=== PATIENT | female | born 1985 | race Caucasian/White ===

== ENCOUNTER 2020-07-18 21:30 | Emergency (ER) | payer OTHER ==
[~2020-07-18] VITALS: Ht 157.5 cm; Wt 62.6 kg
[2020-07-18 23:43] LABS: BASOPHILS % (AUTO) 1 % (0-1); EOSINOPHILS % (AUTO) 1 % (1-7); LYMPHOCYTES % (AUTO) 31 % (22-44); MEAN CORPUSCULAR HEMOGLOBIN 30.5 pg (27.0-34.8); MEAN CORPUSCULAR HGB CONC 34.7 g/dL (32.4-35.8); MEAN PLATELET VOLUME 7.8 fL (7.4-10.4); MONOCYTES % (AUTO) 7 % (2-9); NEUTROPHILS % (AUTO) 60 % (42-75); PLATELET COUNT 315 x10^3/uL (130-400); RED BLOOD COUNT 4.13 x10^6/uL (3.82-5.3); RED CELL DISTRIBUTION WIDTH 13.2 % (9.6-15.2)
[2020-07-18 23:44] LABS: MD NO
[2020-07-18 23:55] LABS: ALBUMIN 3.6 g/dL (3.4-5.0); ANION GAP 5 mmol/L (5-15); CALCIUM 8.5 mg/dL (8.5-10.1); CHLORIDE 108 mmol/L (98-107); CREATININE 0.55 mg/dL (0.55-1.02)
[2020-07-19 01:39] VITALS: BP 118/83
== END 2020-07-19 01:56 | disposition home or self-care (01) ==
LOC: ED 21:31
DX: N93.8 Other specified abnormal uterine and vaginal bleeding (principal); R10.2 Pelvic and perineal pain
CPT/HCPCS: 36415; 80048; 82040; 84703; 85025; 99283